=== PATIENT | female | born 1990 | race Caucasian/White ===

== ENCOUNTER 2017-06-20 22:27 | Emergency (ER) | payer BC ==
--- NOTE | ~2017-06-20 | ER ---
PATIENT'S NAME: TIA REYES [facility] AGE: 26 Y [address] ROOM: [place] [address] LOCATION: ED ADMIT DATE: 06/20/2017 ER/Outpatient Report DISCHARGE DATE: 06/21/2017 FAMILY PHYSICIAN: PHYSICIAN, NO ATTENDING PHYSICIAN: Caitlyn Blanca Time of Arrival: 2227 hours. Time of Evaluation: 2255 hours. CHIEF COMPLAINT: Possible miscarriage, 10 weeks' , heavy bleeding. HISTORY OF PRESENT ILLNESS: This is a 26-year-old female who presents to the ER, who states that she has noted increased vaginal bleeding. She was evaluated by her primary care physician in [place]. They did do an ultrasound when she was 7 weeks along and they told her that her gestational sac was measuring small and that could ultimately result in a miscarriage. She states for the past 3 days she has been having vaginal spotting, but the bleeding intensified tonight while they were out of football game. She states she is having some cramping, it does not radiate into her back. She denies any fever or chills. No other problems at this time. She states her blood type is O positive. ALLERGIES: NO KNOWN ALLERGIES. MEDICATIONS: Please see medication list nurse's notes. PAST MEDICAL HISTORY: Negative. PAST SURGERIES: She has the labrum tear repaired. SOCIAL HISTORY: Denies smoking, drug, or alcohol use. REVIEW OF SYSTEMS: CONSTITUTIONAL: Denies any change in weight or fatigue. RESPIRATORY: No shortness of breath or cough. GI: Is having abdominal cramping. : Is having vaginal bleeding. SKIN: No lesions or rashes. PATIENT'S NAME: TIA REYES [facility] AGE: 26 Y [address] ROOM: [place] [address] LOCATION: [facility] ADMIT DATE: 06/20/2017 ER/Outpatient Report DISCHARGE DATE: 06/21/2017 FAMILY PHYSICIAN: PHYSICIAN, DIEGO ATTENDING PHYSICIAN: Caitlyn Blanca PHYSICAL EXAMINATION: VITAL SIGNS: Height 5 feet and 3 inches stated, weight 77.4 kg taken, blood pressure is 126/85, pulse 89, respirations 16, temperature 99.3 degrees with the temporal scanner, saturations 99% on room air. Cristo Coma Score is 15. GENERAL: Alert, comfortable, 26-year-old female, in no acute distress. HEENT: Head normocephalic. She does display moist mucous membranes. LUNGS: Clear to auscultation bilaterally. HEART: Regular rate and rhythm. ABDOMEN: Soft. She has generalized tenderness in her suprapubic area with palpation. She has good bowel sounds throughout. EXTREMITIES: No clubbing or cyanosis. She has full range of motion of all limbs. : Exam was done. She does have moderate amount of dark blood noted to the vaginal vault. She does have a few clots noted. No tissue was noted. Her cervical os is slightly open. There is no tissue through the cervical os. LABORATORY DATA AND X-RAYS: CBC: White count is 11.7, hemoglobin is 16.0, and platelets are 244. Clot was drawn. HCG is 4617.0. The sac is measuring 7 weeks and 3 days. Heart rate is absent, which is consistent with a demise. IMPRESSION: Miscarriage. ASSESSMENT AND PLAN: The patient did rest comfortably her entire stay. She did not require any pain medication while she was here, but we will send her home with a prescription for Percocet to use as directed. She may alternate her pain medication with ibuprofen as needed. She needs to watch for increased bleeding. If she is to start saturating pad an hour, she should return here to the emergency room or if her pain increases. I would like her to call her [employer]CHNICIAN in [place] tomorrow morning. We also send the patient home with [facility] book as well. The patient and patient's understand and agree with care. NATHALIE GOODWIN PA-C FOR MD DAMIEN BELTRE/margaret /[id number] d: t: 06/25/17 1349, OUTPATIENT REPORT
[2017-06-20 23:39] LABS: BASOPHIL # 0.1 K/uL (0.0-0.2); BASOPHIL % 0.7 %; EOSINOPHIL # 0.1 K/uL (0.0-0.5); HEMATOCRIT 44.3 % (33.0-46.0); IMMATURE GRANULOCYTE # 0.1 K/uL (0.0-0.3); IMMATURE GRANULOCYTE % 0.5 %; LYMPHOCYTE # 3.5 K/uL (0.8-4.0); LYMPHOCYTE % 29.9 %; MCH 33.3 pg (27.0-34.0); MCHC 36.1 gm/dL (32.0-36.5); MCV 92.1 fl (83.0-98.0); MONOCYTE # 0.7 K/uL (0.0-1.0); MONOCYTE % 5.7 %; MPV 10.6 fl (9.4-12.4); NEUTROPHIL # (ANC) 7.3 K/uL (1.8-7.8); NEUTROPHIL % 62.2 %; NRBC % 0 /100WBC (0-0.00); PLATELET COUNT 244 K/uL (150-450); RBC 4.81 M/uL (3.50-5.00); RDW-CV 12.2 % (11.9-14.6); WBC 11.7 K/uL (4.0-11.0)
== END 2017-06-21 00:28 | disposition disaster alternative care site (69) ==
LOC: GMED 22:27
PROVIDERS: Physician Assistant Medical
DX: O03.6 Delayed or excessive hemorrhage following complete or unspecified spontaneous abortion (principal); Z3A.10 10 weeks gestation of pregnancy; Z79.899 Other long term (current) drug therapy